=== PATIENT | male | born 1965 | race Caucasian/White ===

== ENCOUNTER 2017-12-10 08:37 | Emergency (ER) | payer BC ==
[2017-12-10] MEDS ORDERED: Diltiazem 25 MG/5 ML SDV IVPUSH ONE (08:50)
--- NOTE | 2017-12-10 08:51 | EDM.PDOC ---
ED HPI GENERAL MEDICAL PROBLEM - General Chief Complaint: Chest Pain Stated Complaint: A-FIB Time Seen by Provider: 12/10/17 08:40 Source of Information: Reports: Patient History Limitations: Reports: No Limitations - History of Present Illness INITIAL COMMENTS - FREE TEXT/NARRATIVE: 52-year-old male with a long history of supraventricular tachycardia and/or atrial fibrillation was to change medications from Cardizem to sotalol 4 days ago. He stopped the Cardizem but read some of the side effects of sotalol and he hasn't started, and last night at 11:00 he began having palpitations and tachycardia. It was not gone this morning so he came in to be seen, the monitor does show atrial fibrillation with a rate 150-170. He has just a slight pressure in his throat which he typically gets with this, no other new symptoms. Onset: Sudden Duration: Hour(s): (10 hours ago) Severity: Moderate Associated Symptoms: Reports: Other (Anxiety). Denies: Confusion, Chest Pain, Nausea/Vomiting, Shortness of Breath, Weakness Throat Pain Score (Numeric/FACES): 3 - Related Data Allergies Allergy/AdvReac Type Severity Reaction Status Date / Time No Known Allergies Allergy Verified 12/10/17 08:56 Home Meds: Home Meds Diltiazem HCl [Diltiazem 24Hr ER] 360 mg PO DAILY 04/25/16 [History] Past Medical History - Past Health History Medical/Surgical History: Denies Medical/Surgical History Other Cardiovascular History: SVT pvc Gastrointestinal History: Reports: Colon Polyp Endocrine/Metabolic History: Reports: Obesity/BMI 30+ - Past Surgical History Cardiovascular Surgical History: Reports: Cardiac Ablation Social & Family History - Caffeine Use Caffeine Use: Reports: None ED ROS GENERAL - Review of Systems Review Of Systems: See Below Constitutional: Denies: Fever, Chills Respiratory: Denies: Shortness of Breath Cardiovascular: Reports: Other (Slight pressure in his throat but no other symptoms). Denies: Chest Pain, Edema GI/Abdominal: Reports: Other (morbidly obese) Skin: Reports: Diaphoresis Psychiatric: Reports: Anxiety ED EXAM, GENERAL - Physical Exam Exam: See Below Exam Limited By: No Limitations General Appearance: Alert, No Apparent Distress, Anxious Head: Atraumatic Respiratory/Chest: No Respiratory Distress, Lungs Clear Cardiovascular: Tachycardia, Irregularly Irregular GI/Abdominal: Soft, Other (Morbidly obese) Extremities: No: Pedal Edema Neurological: Alert, Oriented Psychiatric: Anxious Skin Exam: Warm, Dry EKG INTERPRETATION EKG Date: 12/10/17 Rhythm: A-Fib Rate (Beats/Min): 162 Course - Vital Signs Last Recorded V/S: Last Vital Signs Temp 97.1 F 12/10/17 08:51 Pulse 99 12/10/17 10:25 Resp 16 12/10/17 10:25 BP 103/39 L 12/10/17 10:25 Pulse Ox 96 12/10/17 10:25 - Orders/Labs/Meds Meds: Medications Discontinued Medications Generic Name Dose Route Start Last Admin Trade Name Freq PRN Reason Stop Dose Admin Diltiazem HCl 25 mg 12/10/17 08:50 12/10/17 08:59 Diltiazem IVPUSH 12/10/17 08:51 25 mg ONETIME ONE Administration Diltiazem HCl 360 mg 12/10/17 09:30 12/10/17 09:39 Cardizem Cd PO 12/10/17 09:31 360 mg ONETIME ONE Administration - Re-Assessments/Exams Free Text/Narrative Re-Assessment/Exam: 12/10/17 09:07 EKG confirmed atrial fibrillation. An IV was started and the patient was given 25 mg of IV Cardizem. 12/10/17 10:01 After the 25 mg of IV Cardizem, the patient had excellent rate control over the next 60 minutes but continued to be in atrial fibrillation. He has a that he has to participate in at 2 PM this afternoon, so was given an oral dose of 360 mg of Cardizem and we'll repeat his oral dose late this afternoon and return tomorrow morning if still in atrial fibrillation. He'll return sooner if his rate is uncontrolled or if he develops more symptoms. Departure - Departure Time of Disposition: 10:50 Disposition: Home, Self-Care 01 Condition: Good Clinical Impression: Atrial fibrillation with rapid ventricular response Instructions: Atrial Fibrillation, [id number] Referrals: Camden Adair MD [Primary Care Provider] - Forms: ED Department Discharge Care Plan Goals: Take an extra Cardizem dose after the this afternoon, and return anytime if you're rate is uncontrolled or you develop more symptoms such as chest pain or shortness of breath. Also recheck tomorrow morning with an empty stomach if you are still struggling with an irregular heartbeat. 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
[2017-12-10] MEDS ORDERED: Diltiazem 180 MG Cap.CD PO ONE (09:30)
[2017-12-10 09:58] VITALS: BP 103/39
== END 2017-12-10 10:35 | disposition home or self-care (01) ==
LOC: JP.ED 08:37
DX: I48.91 Unspecified atrial fibrillation (principal)
CPT/HCPCS: 96374; 99284; A9270; J3490

== ENCOUNTER 2017-12-30 22:35 | Emergency (ER) | payer BC ==
[2017-12-30] MEDS ORDERED: Sodium Chloride 0.9% 10 ML Syringe FLUSH PRN (22:47)
[2017-12-30] MEDS ORDERED: Diltiazem 25 MG/5 ML SDV IVPUSH ONE (22:48)
--- NOTE | 2017-12-30 22:55 | EDM.PDOC ---
ED HPI GENERAL MEDICAL PROBLEM - General Chief Complaint: Cardiovascular Problem Stated Complaint: A FIB Time Seen by Provider: 12/30/17 22:40 Source of Information: Reports: Patient, Old Records History Limitations: Reports: No Limitations - History of Present Illness INITIAL COMMENTS - FREE TEXT/NARRATIVE: 52 yo male with a pHx of intermittent afib presents with a recurrence that began about 1930h tonight. He has no CP or SOB. He is very aware when his rhythm changes. He is on Sotalol and ASA 81 mg daily for his afib. He used to be on diltiazem and has some left at home. He also has a hx of SVT and has had an ablation for this. He does not have a hx of HTN, AODM, valvular problems, CAD , or CVA. His rate tonight is not as fast as he normally is when he goes into afib. Onset: Unknown/Unsure (intermittently for years) Duration: Intermittent Location: Reports: Chest Quality: Reports: Other (no pain) Severity: Mild Improves with: Reports: None Worsens with: Reports: None Context: Reports: Other (PHx of intermittent afib) Associated Symptoms: Reports: No Other Symptoms Treatments [facility]: Reports: Other (see below) (His usual meds only) - Related Data Allergies Allergy/AdvReac Type Severity Reaction Status Date / Time No Known Allergies Allergy Verified 12/10/17 08:56 Home Meds: Home Meds Sotalol HCl [Sotalol] 120 mg PO BID 12/30/17 [History] Past Medical History - Past Health History Medical/Surgical History: Denies Medical/Surgical History HEENT History: Reports: Impaired Vision Cardiovascular History: Reports: Hypertension Other Cardiovascular History: SVT pvc Gastrointestinal History: Reports: Colon Polyp Endocrine/Metabolic History: Reports: Obesity/BMI 30+ - Past Surgical History Cardiovascular Surgical History: Reports: Cardiac Ablation Dermatological Surgical History: Reports: None Social & Family History - Tobacco Use Smoking Status *Q: Never Smoker - Caffeine Use Caffeine Use: Reports: Coffee - Recreational Drug Use Recreational Drug Use: No ED ROS GENERAL - Review of Systems Review Of Systems: See Below Constitutional: Reports: No Symptoms HEENT: Reports: No Symptoms Respiratory: Reports: No Symptoms Cardiovascular: Reports: Palpitations GI/Abdominal: Reports: No Symptoms Skin: Reports: No Symptoms Neurological: Reports: No Symptoms ED EXAM, GENERAL - Physical Exam Exam: See Below Exam Limited By: No Limitations General Appearance: Alert, WD/WN, No Apparent Distress, Obese Eye Exam: Bilateral Eye: Normal Inspection, PERRL Ears: Normal External Exam, Normal Canal, Hearing Grossly Normal Ear Exam: Bilateral Ear: Auricle Normal, Canal Normal Nose: Normal Inspection, Normal Mucosa, No Blood Throat/Mouth: Normal Inspection, Normal Lips, Normal Oropharynx, Normal Voice, No Airway Compromise Head: Atraumatic, Normocephalic Neck: Normal Inspection Respiratory/Chest: No Respiratory Distress, Lungs Clear, Normal Breath Sounds, No Accessory Muscle Use Cardiovascular: No Edema, Tachycardia, Irregularly Irregular GI/Abdominal: Normal Bowel Sounds, Soft, Non-Tender, No Distention Back Exam: Normal Inspection. No: CVA Tenderness (R), CVA Tenderness (L) Extremities: Normal Inspection, Normal Range of Motion, Non-Tender, No Pedal Edema Neurological: Alert, Oriented, CN II-XII Intact, Normal Cognition, No Motor/ Sensory Deficits Psychiatric: Normal Affect, Normal Mood Skin Exam: Warm, Dry, Intact, Normal Color, No Rash EKG INTERPRETATION EKG Date: 12/30/17 Time: 22:35 Rhythm: A-Fib Rate (Beats/Min): 117 [place]: LAD-Left [place] Deviation P-Wave: Absent QRS: Normal ST-T: Normal QT: Prolonged Comparison: Change From Previous EKG (rate slower today) Course - Vital Signs Text/Narrative:: Rate slowed with diltiazem IV, did not convert. Has an appt with cardiology 12/31 , not interested in cardioversion. Feels fine. Wants to go home. Last Recorded V/S: Last Vital Signs Temp 35.7 C 12/30/17 22:43 Pulse 116 H 12/30/17 22:55 Resp 12 12/30/17 22:55 BP 149/94 H 12/30/17 22:55 Pulse Ox 98 12/30/17 22:55 - Orders/Labs/Meds Orders: Active Orders 24 hr Category Date Time Status Cardiac Monitoring [RC] .As Directed Care 12/30/17 22:40 Active EKG Documentation Completion [RC] ASDIRECTED Care 12/30/17 22:57 Active Sodium Chloride 0.9% [Saline Flush] Med 12/30/17 22:47 Active 10 ml FLUSH ASDIRECTED PRN Saline Lock Insert [OM.PC] Routine Oth 12/30/17 22:47 Ordered EKG 12 Lead [EK] Routine Ther 12/30/17 22:57 Ordered Medication Orders Sodium Chloride (Saline Flush) 10 ml FLUSH ASDIRECTED PRN PRN Reason: Keep Vein Open Last Admin: 12/30/17 23:00 Dose: 10 ml Labs: Laboratory Tests 12/30/17 12/30/17 Range/Units 23:01 23:01 WBC 9.9 (4.5-11.0) K/uL RBC 4.87 (4.30-5.90) M/uL Hgb 13.0 (12.0-15.0) g/dL Hct 39.3 L (40.0-54.0) % MCV 81 (80-98) fL MCH 27 (27-31) pg MCHC 33 (32-36) % Plt Count 269 (150-400) K/uL Sodium 141 (140-148) mmol/L Potassium 4.8 (3.6-5.2) mmol/L Chloride 106 (100-108) mmol/L Carbon Dioxide 27 (21-32) mmol/L Anion Gap 8.3 (5.0-14.0) mmol/L BUN 19 H D (7-18) mg/dL Creatinine 0.9 (0.8-1.3) mg/dL Est Cr Clr Drug Dosing 116.54 mL/min Estimated GFR (MDRD) > 60 (>60) Glucose 110 H (74-106) mg/dL Calcium 8.9 (8.5-10.1) mg/dL Troponin I < 0.017 (0.000-0.056) ng/mL TSH, Ultra Sensitive 5.500 H (0.358-3.740) uIU/mL Meds: Medications Generic Name Dose Route Start Last Admin Trade Name Freq PRN Reason Stop Dose Admin Sodium Chloride 10 ml 12/30/17 22:47 12/30/17 23:00 Saline Flush FLUSH 10 ml ASDIRECTED PRN Administration Keep Vein Open Discontinued Medications Generic Name Dose Route Start Last Admin Trade Name Freq PRN Reason Stop Dose Admin Diltiazem HCl 25 mg 12/30/17 22:48 12/30/17 22:53 Diltiazem IVPUSH 12/30/17 22:49 25 mg ONETIME ONE Administration Departure - Departure Time of Disposition: 00:30 Disposition: Home, Self-Care 01 Condition: Good Clinical Impression: Paroxysmal atrial fibrillation, Elevated TSH Instructions: Atrial Fibrillation, [id number] Referrals: PCP,None [Primary Care Provider] - Forms: ED Department Discharge Additional Instructions: F/U with cardiology later today as scheduled. Continue your usual meds. If your heart gets significantly above 100 beats/minute at rest you may take one of your diltiazem capsules. Return here as needed. - My Orders Last 24 Hours: My Active Orders 12/30/17 22:40 Cardiac Monitoring [RC] .As Directed 12/30/17 22:47 Sodium Chloride 0.9% [Saline Flush] 10 ml FLUSH ASDIRECTED PRN Saline Lock Insert [OM.PC] Routine 12/30/17 22:57 EKG Documentation Completion [RC] ASDIRECTED EKG 12 Lead [EK] Routine - Assessment/Plan Last 24 Hours: My Active Orders 12/30/17 22:40 Cardiac Monitoring [RC] .As Directed 12/30/17 22:47 Sodium Chloride 0.9% [Saline Flush] 10 ml FLUSH ASDIRECTED PRN Saline Lock Insert [OM.PC] Routine 12/30/17 22:57 EKG Documentation Completion [RC] ASDIRECTED EKG 12 Lead [EK] Routine
[2017-12-30 22:56] VITALS: BP 149/94
== END 2017-12-31 00:45 | disposition home or self-care (01) ==
LOC: JP.ED 22:35
DX: I48.0 Paroxysmal atrial fibrillation (principal); R94.6 Abnormal results of thyroid function studies; I10 Essential (primary) hypertension; E66.9 Obesity, unspecified
CPT/HCPCS: 36415; 80048; 84443; 84484; 85027; 93005; 96374; 99284; J3490; J7050

== ENCOUNTER 2021-10-20 10:41 | Emergency (ER) | payer BC ==
[2021-10-20] MEDS ORDERED: Propofol 200 MG/20 ML SDV ONE (12:45)
[2021-10-20] MEDS ORDERED: Sotalol 80 MG Tab PO ONE (12:47)
[2021-10-20 13:32] VITALS: BP 155/79; PULSE 60
== END 2021-10-20 13:25 | disposition home or self-care (01) ==
LOC: JP.ED 10:41
DX: I48.92 Unspecified atrial flutter (principal); I48.91 Unspecified atrial fibrillation; I10 Essential (primary) hypertension; E66.9 Obesity, unspecified; Z20.822 Contact with and (suspected) exposure to COVID-19; Z68.42 Body mass index [BMI] 45.0-49.9, adult
CPT/HCPCS: 87635; 92960; 99284; A9270; J2704; U0002

== ENCOUNTER 2022-11-06 16:35 | Emergency (ER) | payer BC ==
[2022-11-06 17:00] LABS: HEMATOCRIT 39.2 % (38.4-49.7); HEMOGLOBIN 12.5 g/dL (12.9-16.9); MEAN CORPUSCULAR HEMOGLOBIN 26.3 pg (31.6-35.5); MEAN CORPUSCULAR HGB CONC 31.9 g/dL (31.6-35.5); MEAN CORPUSCULAR VOLUME 82.5 fL (81.4-99.0); RED BLOOD CELL COUNT 4.75 M/uL (4.14-5.76); WHITE BLOOD CELL COUNT,WBC 8.4 K/uL (3.2-11.0)
[2022-11-06 17:18] LABS: PROTHROMBIN TIME 9.9 sec (9.2-10.6)
[2022-11-06 17:24] LABS: ALANINE AMINOTRANSFERASE,ALT 26 U/L (12-78); ALBUMIN 3.6 g/dL (3.4-5.0); ALKALINE PHOSPHATASE 90 U/L (46-116); ANION GAP 9.1 mmol/L (5.0-14.0); ASPARTATE AMNIOTRANSFERASE,AST 21 U/L (15-37); BILIRUBIN TOTAL 0.4 mg/dL (0.2-1.0); BLOOD UREA NITROGEN,BUN 22 mg/dL (7-18); CALCIUM 9.2 mg/dL (8.5-10.1); CARBON DIOXIDE,CO2 33 mmol/L (21-32); CHLORIDE,CL 105 mmol/L (100-108); EST CRCL DRUG DOSING (CG) 98.86 mL/min; ESTIMATED GFR 87 mL/min (>60); GLUCOSE RANDOM 130 mg/dL (74-106); POTASSIUM,K 4.1 mmol/L (3.6-5.2); PROTEIN TOTAL,TP 7.1 g/dL (6.4-8.2); SODIUM,NA 143 mmol/L (140-148); TROPONIN I HIGH SENSITIVITY 11.1 pg/mL (<=60.3)
[2022-11-06] MEDS ORDERED: HYDROmorphone 0.5 MG/0.5 ML Syringe IVPUSH ONE (18:16)
[2022-11-06 18:39] LABS: BILIRUBIN,URINE NEGATIVE (NEGATIVE); COLOR,URINE YELLOW (YELLOW); GLUCOSE,URINE NEGATIVE (NEGATIVE); KETONES,URINE NEGATIVE (NEGATIVE); LEUKOCYTE ESTERASE,URINE NEGATIVE (NEGATIVE); NITRITE,URINE NEGATIVE (NEGATIVE); OCCULT BLOOD,URINE TRACE-LYSED (NEGATIVE); PROTEIN,URINE NEGATIVE (NEGATIVE); UROBILINOGEN,URINE 0.2 EU/dL (0.2-1.0)
[2022-11-06 18:42] LABS: AMORPHOUS SEDIMENT,URINE NOT SEEN; AMPHETAMINES SCREEN, URINE NEGATIVE (NEGATIVE); APPEARANCE,URINE CLEAR (CLEAR); BACTERIA,URINE RARE; BARBITURATE SCREEN,URINE NEGATIVE (NEGATIVE); BENZODIAZEPINES SCREEN,URINE NEGATIVE (NEGATIVE); EPITHELIAL CELLS,URINE RARE; METHADONE SCREEN, URINE NEGATIVE (NEGATIVE); METHAMPHETAMINES SCREEN, URINE NEGATIVE (NEGATIVE); MUCUS,URINE RARE; OXYCODONE SCREEN,URINE NEGATIVE (NEGATIVE); PROPOXYPHENE SCREEN,URINE NEGATIVE (NEGATIVE); RBC,URINE 0-5 (0-5); THC SCREEN,URINE 50 NG/ML NEGATIVE (NEGATIVE); WBC,URINE 0-5 (0-5)
[2022-11-06] MEDS ORDERED: Iopamidol 755 Mg/ML 100 ML Bottle IV SCH (18:45)
[2022-11-06] MEDS ORDERED: Sodium Chloride 0.9% 100 ML IV SCH (18:45)
[2022-11-06 19:29] VITALS: BP 144/69; PULSE 72
== END 2022-11-06 19:56 | disposition home or self-care (01) ==
LOC: JP.ED 16:35
DX: J40 Bronchitis, not specified as acute or chronic (principal); I48.91 Unspecified atrial fibrillation; I10 Essential (primary) hypertension; E66.9 Obesity, unspecified; Z68.42 Body mass index [BMI] 45.0-49.9, adult
CPT/HCPCS: 36415; 71046; 71275; 80053; 80305; 81001; 83605; 84484; 85027; 85379; 85610; 93005; 96374; 99285; J1170; J3490; Q9967

== ENCOUNTER 2023-01-27 09:52 | Emergency (ER) | payer BC ==
[2023-01-27] MEDS ORDERED: Sodium Chloride 0.9% 500 ML IV ONE (10:30)
[2023-01-27] MEDS ORDERED: Sodium Chloride 0.9% 500 ML IV SCH (10:30)
[2023-01-27] MEDS ORDERED: Diltiazem 25 MG/5 ML SDV IVPUSH ONE ×2 (10:31→11:04)
[2023-01-27 10:41] LABS: BASOPHILS ABSOLUTE AUTO 0.04 K/uL (0.00-0.10); BASOPHILS PERCENT AUTO 0.3 % (0.1-1.3); EOSINOPHILS PERCENT AUTO 0.1 % (0.0-5.4); HEMATOCRIT 38.6 % (38.4-49.7); HEMOGLOBIN 12.3 g/dL (12.9-16.9); IMMATURE GRAN ABSOLUTE AUTO 0.07 K/uL (0.00-0.23); IMMATURE GRAN PERCENT AUTO 0.6 % (0.0-0.7); LYMPHOCYTES ABSOLUTE AUTO 4.23 K/uL (0.8-3.3); LYMPHOCYTES PERCENT AUTO 36.3 % (11.4-47.7); MEAN CORPUSCULAR HEMOGLOBIN 25.9 pg (31.6-35.5); MEAN CORPUSCULAR HGB CONC 31.9 g/dL (31.6-35.5); MEAN CORPUSCULAR VOLUME 81.4 fL (81.4-99.0); MONOCYTES ABSOLUTE AUTO 1.13 K/uL (0.20-0.90); MONOCYTES PERCENT AUTO 9.7 % (3.3-12.6); NEUTROPHILS ABSOLUTE AUTO 6.18 K/uL (1.0-7.6); PLATELET COUNT,PLT 269 K/uL (130-375); RED BLOOD CELL COUNT 4.74 M/uL (4.14-5.76); WHITE BLOOD CELL COUNT,WBC 11.7 K/uL (3.2-11.0)
[2023-01-27 10:43] LABS: EOSINOPHILS ABSOLUTE AUTO 0.01 K/uL (0.00-0.40)
[2023-01-27 11:01] LABS: INR 1.1; PROTHROMBIN TIME 10.7 sec (9.2-10.6)
[2023-01-27 11:12] LABS: A/G RATIO 1.1 (1.2-2.2); ALANINE AMINOTRANSFERASE,ALT 79 U/L (12-78); ALBUMIN 3.4 g/dL (3.4-5.0); ALKALINE PHOSPHATASE 75 U/L (46-116); ANION GAP 12.5 mmol/L (5.0-14.0); ASPARTATE AMNIOTRANSFERASE,AST 40 U/L (15-37); BILIRUBIN TOTAL 0.3 mg/dL (0.2-1.0); BLOOD UREA NITROGEN,BUN 27 mg/dL (7-18); CARBON DIOXIDE,CO2 29 mmol/L (21-32); CHLORIDE,CL 102 mmol/L (100-108); CREATININE 0.9 mg/dL (0.8-1.3); EST CRCL DRUG DOSING (CG) 109.84 mL/min; ESTIMATED GFR 99 mL/min (>60); GLUCOSE RANDOM 98 mg/dL (74-106); POTASSIUM,K 3.5 mmol/L (3.6-5.2); PRO B-TYPE NATRIUR PEPT,BNPPRO 3810 pg/mL (5-125); PROTEIN TOTAL,TP 6.5 g/dL (6.4-8.2); SODIUM,NA 140 mmol/L (140-148)
[2023-01-27] MEDS ORDERED: Rivaroxaban 10 MG Tab PO ONE (11:53)
[2023-01-27] MEDS ORDERED: Sotalol 80 MG Tab PO ONE (12:00)
[2023-01-27 13:14] VITALS: BP 160/82; PULSE 79
== END 2023-01-27 13:20 | disposition home or self-care (01) ==
LOC: JP.ED 09:52
DX: I48.20 Chronic atrial fibrillation, unspecified (principal); E66.9 Obesity, unspecified; Z68.42 Body mass index [BMI] 45.0-49.9, adult
CPT/HCPCS: 36415; 71045; 80053; 83880; 84443; 85025; 85610; 93005; 96374; 99285; A9270; J3490; J7040

== ENCOUNTER 2023-05-08 08:03 | Inpatient (IN) | payer BC ==
[2023-05-08 08:36] LABS: HEMATOCRIT 39.7 % (38.4-49.7); HEMOGLOBIN 12.5 g/dL (12.9-16.9); MEAN CORPUSCULAR HEMOGLOBIN 25.6 pg (31.6-35.5); MEAN CORPUSCULAR HGB CONC 31.5 g/dL (31.6-35.5); MEAN CORPUSCULAR VOLUME 81.2 fL (81.4-99.0); RED BLOOD CELL COUNT 4.89 M/uL (4.14-5.76); WHITE BLOOD CELL COUNT,WBC 6.4 K/uL (3.2-11.0)
[2023-05-08] MEDS: Nozin Nasal Sanitizer NASBOTH SCH ×2 (08:50→20:47)
[2023-05-08] MEDS: Lactated Ringers 1,000 ML IV SCH (08:51)
[2023-05-08 08:56] LABS: A/G RATIO 1.1 (1.2-2.2); ALANINE AMINOTRANSFERASE,ALT 25 U/L (12-78); ALBUMIN 3.6 g/dL (3.4-5.0); ALKALINE PHOSPHATASE 79 U/L (46-116); ANION GAP 8.6 mmol/L (5.0-14.0); ASPARTATE AMNIOTRANSFERASE,AST 20 U/L (15-37); BILIRUBIN TOTAL 0.5 mg/dL (0.2-1.0); BLOOD UREA NITROGEN,BUN 21 mg/dL (7-18); CALCIUM 8.5 mg/dL (8.5-10.1); CARBON DIOXIDE,CO2 28 mmol/L (21-32); CHLORIDE,CL 103 mmol/L (100-108); CREATININE 0.9 mg/dL (0.8-1.3); EST CRCL DRUG DOSING (CG) 109.84 mL/min; ESTIMATED GFR 99 mL/min (>60); GLUCOSE RANDOM 108 mg/dL (74-106); PROTEIN TOTAL,TP 6.9 g/dL (6.4-8.2); SODIUM,NA 140 mmol/L (140-148)
[2023-05-08] MEDS: ceFAZolin 2 GM in Premix Bag 1 BAG IV ONE (08:58)
[2023-05-08] MEDS ORDERED: Propofol 200 MG/20 ML SDV ONE (09:01)
[2023-05-08] MEDS ORDERED: fentaNYL 100 MCG/2 ML SDV ONE (09:01)
[2023-05-08] MEDS ORDERED: Midazolam 1 MG/ML 2 ML SDV ONE (09:01)
[2023-05-08] MEDS ORDERED: Lidocaine 1% 4 ML ONE (09:43)
[2023-05-08] MEDS ORDERED: fentaNYL 250 MCG/5 ML SDV ONE (09:49)
[2023-05-08] MEDS ORDERED: Neostigmine Methylsulfate 10 MG/10 ML MDV ONE (09:50)
[2023-05-08] MEDS ORDERED: Glycopyrrolate 0.2 MG/ML 5 ML MDV ONE (09:50)
[2023-05-08] MEDS ORDERED: Ondansetron 4 MG/2 ML SDV ONE (09:50)
[2023-05-08] MEDS ORDERED: Succinylcholine 200 MG/10 ML MDV ONE (09:50)
[2023-05-08] MEDS ORDERED: Rocuronium 50 MG/5 ML Vial ONE ×2 (09:50→10:36)
[2023-05-08] MEDS ORDERED: Dexamethasone 4 MG/ML SDV ONE (09:50)
[2023-05-08] MEDS ORDERED: Lactated Ringers 1,000 ML ONE (09:53)
[2023-05-08] MEDS: Tranexamic Acid 1,000 MG in Sodium Chloride 0.9% 50 ML IV ONE (10:15)
[2023-05-08] MEDS: Bupivacaine 0.5% 50 ML MDV ONE ×2 (10:28→11:41)
[2023-05-08] MEDS ORDERED: Ondansetron 4 MG/2 ML SDV IVPUSH PRN (11:54)
[2023-05-08] MEDS ORDERED: Magnesium Hydroxide 400 MG/5 ML Susp 30 ML Cup PO PRN (11:54)
[2023-05-08] MEDS ORDERED: Morphine 2 MG/ML SYRINGE IVPUSH PRN (11:54)
[2023-05-08] MEDS ORDERED: oxyCODONE 5 MG Tab PO PRN (11:57)
[2023-05-08] MEDS ORDERED: Furosemide 40 MG Tab PO PRN (11:58)
[2023-05-08] MEDS: Morphine 2 MG/ML SYRINGE IVPUSH ONE (12:07)
[2023-05-08] MEDS: Acetaminophen 325 MG Tab PO SCH (13:04)
[2023-05-08] MEDS: oxyCODONE 5 MG Tab PO PRN (13:04)
[2023-05-08] MEDS: Sodium Chloride 0.9% 1,000 ML IV SCH (15:11)
[2023-05-08] MEDS: ceFAZolin 2 GM in Premix Bag 1 BAG IV SCH (15:14)
[2023-05-08] MEDS: Flecainide 50 MG Tab PO SCH (20:47)
[2023-05-08] MEDS: Saliva Substitute Oral Spray 120 ML Bottle MUCMEM PRN (21:52)
[2023-05-09] MEDS: Aspirin 325 MG Tab.EC PO SCH (08:25)
[2023-05-09] MEDS: Levothyroxine 50 MCG Tab PO SCH (08:28)
[2023-05-09] MEDS: Diltiazem 120 MG Cap.CD PO SCH (08:33)
[2023-05-09] MEDS: Ketorolac 15 MG/ML SDV IVPUSH PRN (20:08)
[2023-05-10 08:34] VITALS: BP 165/65; PULSE 75
[2023-05-10] MEDS: Docusate Sodium 100 MG Cap PO PRN (08:38)
== END 2023-05-10 11:30 | disposition home or self-care (01) | DRG 302 ==
LOC: JP.SDS 08:03 → JP.MS 11:54 → JP.SDS 05-09 14:27 → JP.MS 05-09 15:18 → OBSVTOIN 05-09 15:18
PROVIDERS: ADMIT Specialist; ATTEND Specialist
PROC: 0SRC069 Replacement of Right Knee Joint with Oxidized Zirconium on Polyethylene Synthetic Substitute, Cemented, Open Approach (ICD-10-PCS; principal; 2023-05-08 09:30)
DX: M17.11 Unilateral primary osteoarthritis, right knee (principal); I48.91 Unspecified atrial fibrillation; Z79.82 Long term (current) use of aspirin; Z79.899 Other long term (current) drug therapy
CPT/HCPCS: 27447; 36415; 73560-26-RT; 73560-RT; 80053; 85027; 97110-GP; 97116-GP; 97161-GP; 97530-GP; A9270-GY; C1713; C1776; J0330; J0690; J1100; J1885; J2250; J2270; J2405; J2704; J2710; J3010; J3490; J7030; J7120

== ENCOUNTER 2025-04-03 14:56 | Emergency (ER) | payer BC ==
[2025-04-03 15:14] VITALS: BP 142/71; PULSE 82
[2025-04-03] MEDS: Diphtheria,Pertussis(Acell),Tetanus Vaccine 0.5 ML Syringe IM ONE (16:21)
== END 2025-04-03 16:36 | disposition home or self-care (01) ==
LOC: JP.ED 14:56
DX: S81.812A Laceration without foreign body, left lower leg, initial encounter (principal); Z23 Encounter for immunization; W22.8XXA Striking against or struck by other objects, initial encounter; Y93.89 Activity, other specified
CPT/HCPCS: 90471; 90715; 99282; 99282-25